=== PATIENT | female | born 1995 | race Caucasian/White ===

== ENCOUNTER 2016-07-17 12:23 | Emergency (ER) | payer MEDICAID, OTHER ==
[2016-07-17 12:25] VITALS: BP 117/76; PULSE 74; RESP 20; TEMP 98.3; O2SAT 100
[2016-07-17] MEDS ORDERED: PROG1CAP20 PO (13:13)
--- NOTE | 2016-07-17 13:13 | PD ---
HPI Chief Complaint: Related Problem Time Seen by Provider: 12:31 Travel History International Travel<30 days: No Contact w/Intl Traveler<30days: No Traveled to known affect area: No History of Present Illness HPI Patient is a 21-year-old at approximately 8 weeks 6 days based on LMP of who presents the emergency department today with concerns for possible miscarriage. Yesterday afternoon patient had cramping in the pelvis and a small amount of vaginal bleeding primarily when she wiped on the toilet paper. She was seen at the emergency department at [facility] last night. On 07/16/16 at 2249 she had a ultrasound showing single intrauterine gestation. Gestational sac measuring 5 weeks 2 days and crown- rump length of the fetus measuring 6 weeks 3 days. heart rate was 141 bpm. Beta Quant was 2198. Patient states that she was told that she may be having a miscarriage because her gestational sac measuring 1 week behind crown- rump length. In the interim however she has not had any persistent cramping or vaginal bleeding and her symptoms have resolved. Patient and her fianc presents the emergency department today requesting "to save my baby". PFSH Past Medical History Diminished Hearing: No Immunizations Current: Yes ?: LMP: 05/16/16 : 1 Para: 1 Social History Alcohol Use: No Tobacco Use: No Substance Use: No Allergies-Medications (Allergen,Severity, Reaction): Coded Allergies: No Known Allergies (Verified , 06/13/14) Reported Meds & Prescriptions Reported Meds & Active Scripts Active Prometrium (Progesterone Micronized) 100 Mg Cap 100 Mg PO DAILY Review of Systems Except as stated in HPI: all other systems reviewed are Neg Physical Exam Narrative GENERAL: Well-appearing female in no acute distress SKIN: Focused skin assessment warm/dry. HEAD: Normocephalic. EYES: No scleral icterus. No injection or drainage. ENT: Mucous membranes pink and moist. NECK: Supple CARDIOVASCULAR: Regular rate and rhythm. RESPIRATORY: No accessory muscle use. GASTROINTESTINAL: Abdomen soft, non-tender, nondistended. MUSCULOSKELETAL: Normal gait NEUROLOGICAL: Awake and alert. Normal speech. PSYCHIATRIC: Anxious Data Data Last Documented VS Vital Signs Date Time Temp Pulse Resp B/P Pulse Ox O2 Delivery O2 Flow Rate FiO2 07/17/16 12:33 18 6/10/17 12:25 98.3 74 117/76 100 Room Air [facility] Medical Decision Making Medical Screen Exam Complete: Yes Emergency Medical Condition: Yes Medical Record Reviewed: Yes Differential Diagnosis 21-year-old at 6 weeks 3 days based on ultrasound performed last night here with concerns for miscarriage. Ultrasound yesterday evening showed with active heart rate. She did have some cramping and bleeding but those symptoms have since resolved. History is consistent with threatened AB. Her gestational sac is 1 week behind measurement compared to her chronic rump length/ pole. However patient her fianc were counseled about the room for air given the fact that these measurements are so small. Even a 1 mm different measurement in the cursor could account for several days. Ultimately, patient and her fianc had a very poor experience at the outside hospital emergency department. After prolonged counseling here in the emergency department, her symptoms have resolved and her pain and bleeding have resolved. We discussed the use of potential progesterone, although this has limited proof of benefit in first trimester. Regardless she needs a follow-up for repeat ultrasound in approximately one week to repeat date and evaluate for interval growth within the . There is nothing different that needs to be performed today. Narrative Course Patient and her fianc were agreeable with the above plan and will be referred to PROFESSOR OF ARCHAEOLOGY for repeat ultrasound in approximately one week. Diagnosis Primary Impression: Vaginal bleeding during , antepartum Referrals: [facility] Additional Instructions: Progesterone supplementation as prescribed. Follow-up with PROFESSOR OF ARCHAEOLOGY in approximately one week for repeat ultrasound as discussed. Med/Other Pt SpecificInfo: Prescription(s) given Scripts Progesterone Micronized (Prometrium)100 Mg Myl549 Mg PO DAILY #7 CAP Ref 0 Prov:Trixie Hernandez MD 07/17/16 Disposition: 01 DISCHARGE HOME Condition: Stable Trixie Hernandez MD Jul 17, 2016 13:13
== END 2016-07-17 13:43 | disposition home or self-care (01) ==
LOC: NEPD 12:23
DX: O20.9 Hemorrhage in early pregnancy, unspecified (principal); Z3A.08 8 weeks gestation of pregnancy
CPT/HCPCS: 99283

== ENCOUNTER 2016-07-23 19:42 | Emergency (ER) | payer OTHER ==
[~2016-07-23] VITALS: Ht 167.6 cm; Wt 60.0 kg
[~2016-07-23 19:42] MED LIST: PROG1CAP20 PO
[2016-07-23 19:44] VITALS: BP 117/72; PULSE 64; RESP 16; TEMP 99; O2SAT 99
[2016-07-23] MEDS ORDERED: CEPH-460 PO (21:47)
[2016-07-23 21:52] VITALS: BP 108/63; PULSE 65; RESP 16; O2SAT 100
--- NOTE | 2016-07-23 21:54 | PD ---
HPI Chief Complaint: Medical Reimbursement Specialist Problem/Complaint Time Seen by Provider: 21:54 Travel History International Travel<30 days: No Contact w/Intl Traveler<30days: No Traveled to known affect area: No History of Present Illness HPI 21-year-old female presents to the ED for evaluation of 1 week history of cramping back pain and vaginal bleeding. States that the bleeding has been heavy with "clots." Patient was seen on 07/17. She had a transvaginal ultrasound on 07/16 at an outside hospital which revealed an intrauterine measuring approximately 5 weeks, 2 days and a beta Quant 2198. She was prescribed progesterone at the time and endorses compliance with these medications. She denies nausea, vomiting, abdominal pain. Endorses increased urinary urgency, denies dysuria. PFSH Past Medical History Diabetes: No Patient Takes Glucophage: No Diminished Hearing: No Immunizations Current: Yes Tetanus Vaccination: > 5 Years Influenza Vaccination: No ?: : 1 Para: 1 Social History Alcohol Use: No Tobacco Use: No Substance Use: No Allergies-Medications (Allergen,Severity, Reaction): Coded Allergies: No Known Allergies (Verified , 07/23/16) Reported Meds & Prescriptions Reported Meds & Active Scripts Active Ibuprofen 600 Mg Tab 600 Mg PO Q8H PRN Prometrium (Progesterone Micronized) 100 Mg Cap 100 Mg PO DAILY Reported Keflex (Cephalexin) 500 Mg Cap 500 Mg PO Q12H Review of Systems Except as stated in HPI: all other systems reviewed are Neg Physical Exam Narrative GENERAL: Well-nourished, well-developed thin female in no acute distress. SKIN: Focused skin assessment warm/dry. HEAD: Normocephalic. EYES: No scleral icterus. No injection or drainage. NECK: Supple, trachea midline. No JVD or lymphadenopathy. CARDIOVASCULAR: Regular rate and rhythm without murmurs, gallops, or rubs. RESPIRATORY: Breath sounds clear and equal bilaterally. No accessory muscle use. GASTROINTESTINAL: Abdomen soft, non-tender, nondistended. No suprapubic tenderness. Active bowel sounds. MUSCULOSKELETAL: No cyanosis, or edema. BACK: Nontender without obvious deformity. No CVA tenderness. Data Data Last Documented VS Vital Signs Date Time Temp Pulse Resp B/P Pulse Ox O2 Delivery O2 Flow Rate FiO2 07/23/16 21:52 65 16 108/63 100 Room Air 07/23/16 19:44 99.0 Orders Beta Hcg (Quant/Titer) (07/23/16 22:05) Us Pelvis (Ques Pr/Ect)W Trans (07/23/16 ) Iv Access Insert/Monitor (07/23/16 22:05) Complete Rh (07/23/16 22:20) Labs Laboratory Tests Test 07/23/16 22:15 Human Chorionic Gonadotropin, 52 MIU/ML Quant Blood Type O POSITIVE Rho(D) Type POSITIVE MDM Medical Decision Making Medical Screen Exam Complete: Yes Emergency Medical Condition: Yes Differential Diagnosis AB versus complete AB versus complete AB versus demise versus other Narrative Course 21-year-old female presents to the ED for evaluation of 1 week history of cramping back pain and vaginal bleeding. States that the bleeding has been heavy with "clots." Patient was seen on 07/17. She had a transvaginal ultrasound on 07/16 at an outside hospital which revealed an intrauterine measuring approximately 5 weeks, 2 days and a beta Quant 2198. She was prescribed progesterone at the time and endorses compliance with these medications. She denies nausea, vomiting, abdominal pain. Endorses increased urinary urgency, denies dysuria. Vitals reviewed. Physical exam is unremarkable. Beta Quant 50 on recheck. Blood type O+. Transvaginal US reveals no IUP. I discussed the results of the workup with the patient. I explained the variable process of miscarriage and instructed the patient to take a multivitamin with iron, follow up with the PCP or [facility]. I provided the patient with a short course of pain medications, cautioned her not to drive while taking narcotics. The patient indicated understanding of the instructions and is agreeable to the care plan. She is stable and discharged home. Diagnosis Primary Impression: Spontaneous in first trimester Referrals: Plumber Assistant Primary Care Physician Patient Instructions: General Instructions, Spontaneous Miscarriage (ED) Additional Instructions: Rest, hydrate. Take an OTC multivitamin with iron to combat anemia due to blood loss. Take pain medications as prescribed. Follow-up with the primary care or [facility]. Return to the ED for any urgent or emergent medical condition. Med/Other Pt SpecificInfo: Prescription(s) given Scripts Ibuprofen 600 Mg Rcm222 Mg PO Q8H PRN (PAIN) #15 TAB Ref 0 Prov:Tunde Childress MD 07/23/16 Disposition: 01 DISCHARGE HOME Condition: Stable Echo Momin Jul 23, 2016 21:54
[2016-07-23 23:08] LABS: BETA HCG QUANT 52 MIU/ML (0-5)
[2016-07-23] MEDS ORDERED: IBUP-232 PO (23:19)
--- NOTE | 2016-07-24 00:05 | RADRPT ---
EXAM DATE/TIME: 07/23/2016 23:05 [place] COMPARISON: No previous studies available for comparison. INDICATIONS : Pelvic bleeding. LAB(S): Beta-hC MEDICAL HISTORY : . SURGICAL HISTORY : None. ENCOUNTER: Initial ACUITY: 1 week PAIN SCORE: 7/10 LOCATION: Bilateral pelvis MEASUREMENTS: UTERUS: 7.8 x 4.8 x 3.1 cm ENDOMETRIAL STRIPE: 6 mm RIGHT OVARY: 1.9 x 2.2 x 2.3 cm LEFT OVARY: 1.9 x 2.3 x 2.0 cm FREE FLUID: No FINDINGS: No intrauterine is identified. There is a 5 mm x 2 mm area in the endometrial canal probabl y representing a small hemorrhage. Small cystic area in the uterus anteriorly. 1.3 cm right ovarian c yst may represent a corpus luteum cyst. CONCLUSION: 1. No intrauterine identified probably due to miscarriage. Trace fluid or hemorrhage in the endometrial canal. A corpus luteum cyst right ovary. Glenroy Rivers MD on July 23, 2016 at 23:57 Board Certified Radiologist. This report was verified electronically.
== END 2016-07-24 00:55 | disposition home or self-care (01) ==
LOC: NEPD 19:42
DX: O03.9 Complete or unspecified spontaneous abortion without complication (principal)
CPT/HCPCS: 76700; 76817; 84702; 86901; 99284

== ENCOUNTER 2016-10-08 09:32 | Emergency (ER) | payer MEDICAID ==
[~2016-10-08] VITALS: Ht 162.6 cm; Wt 55.0 kg
[~2016-10-08 09:32] MED LIST changes: +CEPH-460 PO; +IBUP-232 PO
[2016-10-08 09:35] VITALS: BP 100/57; PULSE 67; RESP 18; TEMP 97.5; O2SAT 100
--- NOTE | 2016-10-08 11:09 | PD ---
HPI Chief Complaint: Related Problem Time Seen by Provider: 10:47 Travel History International Travel<30 days: No Contact w/Intl Traveler<30days: No Traveled to known affect area: No History of Present Illness HPI This is a 21-year-old female who is 11 weeks by dates who presents to the emergency department having had vigorous intercourse last evening after not having intercourse for a long time, and subsequently having some spotting and lower abdominal cramping, moderate severity, with no associated fevers or chills. She has had some dysuria. She had a miscarriage prior to this and has a 5-year-old. [facility] Past Medical History Diabetes: No Diminished Hearing: No Immunizations Current: Yes ?: LMP: 07/16/16 : 1 Para: 1 Social History Alcohol Use: No Tobacco Use: No Substance Use: No Allergies-Medications (Allergen,Severity, Reaction): Coded Allergies: No Known Allergies (Verified , 10/08/16) Reported Meds & Prescriptions Reported Meds & Active Scripts Active No Active Prescriptions or Reported Medications Review of Systems Except as stated in HPI: all other systems reviewed are Neg Physical Exam Narrative GENERAL:Well appearing, no acute distress SKIN: Focused skin assessment warm and dry. HEAD: Atraumatic. Normocephalic. EYES: Pupils equal and round. No injection or drainage. ENT: Moist mucous membranes NECK: Trachea midline. CARDIOVASCULAR: Regular rate and rhythm. No murmur appreciated. RESPIRATORY: Clear to auscultation. Breath sounds equal bilaterally. GASTROINTESTINAL: Abdomen soft, mildly tender to palpation in the lower abdomen with no rebound or guarding. COURIER: no discharge in the vault, normal appearing cervix with no bleeding MUSCULOSKELETAL: No obvious deformities. NEUROLOGICAL: Awake and alert. No obvious cranial nerve deficits. Moving all extremities. PSYCHIATRIC: Appropriate mood and affect; insight and judgment normal. Data Data Last Documented VS Vital Signs Date Time Temp Pulse Resp B/P (MAP) Pulse Ox O2 Delivery O2 Flow Rate FiO2 10/08/16 10:55 16 10/08/16 09:35 97.5 67 100/57 (71) 100 Orders Orders Ed Poc Ultrasound (10/08/16 ) Urinalysis - C+S If Indicated (10/08/16 11:11) Labs Laboratory Tests Test 10/08/16 11:20 Urine Color YELLOW Urine Turbidity HAZY Urine pH 7.5 Urine Specific [place] 1.015 Urine Protein NEG mg/dL Urine Glucose (UA) NEG mg/dL Urine Ketones NEG mg/dL Urine Occult Blood NEG Urine Nitrite NEG Urine Bilirubin NEG Urine Urobilinogen LESS THAN 2.0 MG/DL Urine Leukocyte Esterase NEG Urine RBC 2 /hpf Urine WBC 3 /hpf Urine Squamous Epithelial Cells 1 /hpf Urine Amorphous Sediment RARE Urine Bacteria RARE /hpf Urine Mucus FEW /lpf Microscopic Urinalysis Comment CULT NOT INDICATED MDM Medical Decision Making Medical Screen Exam Complete: Yes Emergency Medical Condition: Yes Interpretation(s) Afebrile, no tachycardia, normotensive Urinalysis: Rare bacteria Differential Diagnosis Threatened miscarriage, incomplete miscarriage, complete miscarriage, vaginal laceration Narrative Course This is a 21-year-old female who presents to the emergency department with spotting in the setting of her first trimester. She had rigorous vaginal intercourse yesterday. She is having some cramping. She is well-appearing on exam. She has a benign COURIER exam. Urinalysis demonstrates some rare bacteria but is otherwise reassuring. She'll be placed on an antibiotic and will follow up with her card tape converter operator. Diagnosis Primary Impression: First trimester bleeding Additional Impression: Asymptomatic bacteriuria during Patient Instructions: General Instructions Additional Instructions: You have been diagnosed with a threatened miscarriage. Many women who have vaginal bleeding in early go on to have normal pregnancies. However some women that have vaginal bleeding will have a miscarriage and it is important to followup with your card tape converter operator. If you develop severe abdominal pain, fever, persistent vomiting or inability to eat, heavy vaginal bleeding using more than one pad an hour, lightheadedness , dizziness, chest pain or shortness of breath return to the emergency department immediately. Followup with your card tape converter operator as soon as possible. Take Tylenol as needed for pain. Med/Other Pt SpecificInfo: Prescription(s) given Scripts Cephalexin (Keflex) 500 Mg Cap 500 MG PO Q12H for Infection for 7 Days, CAP 0 Refills Prov: Tg Beckford MD 10/08/16 Disposition: 01 DISCHARGE HOME Condition: Stable Tg Beckford MD Oct 08, 2016 11:09
[2016-10-08 12:00] LABS: BACTERIA, URINE RARE /hpf; BLOOD, URINE NEG (NEG); COMMENT (UR) CULT NOT INDICATED; CULTURE IF INDICATED CULT NOT INDICATED; GLUCOSE,URINE NEG (NEG); KETONE, URINE NEG (NEG); MUCUS URINE FEW /lpf (OCC); NITRITE,URINE NEG (NEG); PH, URINE 7.5 (5.0-8.5); SQUAMOUS EPITHELIAL CELL URINE 1 /hpf (0-5); URINE COLOR YELLOW (YELLW/STRAW)
[2016-10-08] MEDS ORDERED: CEPH-460 PO (12:07)
[2016-10-08 15:51] LABS: CHLAMYDIA PCR NOT DETECTED (NOT DETECT); NEISSERIA PCR NOT DETECTED (NOT DETECT)
== END 2016-10-08 12:43 | disposition home or self-care (01) ==
LOC: NEPD 09:32
DX: O46.91 Antepartum hemorrhage, unspecified, first trimester (principal); O26.891 Other specified pregnancy related conditions, first trimester; R82.71 Bacteriuria; R10.30 Lower abdominal pain, unspecified; Z3A.11 11 weeks gestation of pregnancy
CPT/HCPCS: 81001; 87210; 87491; 87591; 99283

== ENCOUNTER 2016-11-12 16:02 | Emergency (ER) | payer MEDICAID ==
[~2016-11-12] VITALS: Ht 162.6 cm; Wt 55.0 kg
[~2016-11-12 16:02] MED LIST changes: -IBUP-232 PO; -PROG1CAP20 PO
[2016-11-12 16:07] VITALS: BP 124/82; PULSE 72; RESP 15; TEMP 98.4; O2SAT 98
[2016-11-12 16:22] VITALS: BP 114/69; PULSE 81; RESP 18; O2SAT 100
--- NOTE | 2016-11-12 16:25 | PD ---
HPI Chief Complaint: Neuro Symptoms/ Deficits Time Seen by Provider: 16:18 Travel History International Travel<30 days: No Contact w/Intl Traveler<30days: No Traveled to known affect area: No History of Present Illness HPI 21-year-old female came to the emergency room with history of sudden onset of blurred vision followed by some slurred speech at 2 PM. 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 This speech lasted for 15 minutes but the blurred vision is still there. Soon after she started having mid forehead headache patient says the headache is 5 out of 10 and is in the center of her forehead. She's never had these symptoms before. No history of loss of consciousness. Vital signs are stable. For past 4 weeks she's been having vaginal bleeding every day and she is being seen by an OB for that. The bleeding has been steady and stable so far. No history of cramping. PFSH Past Medical History Narrative Medical List of her past medical, surgical, social and family history is reviewed from the nursing note. Diabetes: No Diminished Hearing: No Immunizations Current: Yes ?: LMP: 07/16/16 : 1 Para: 1 Social History Alcohol Use: No Tobacco Use: No Substance Use: No Allergies-Medications (Allergen,Severity, Reaction): Coded Allergies: No Known Allergies (Verified , 10/08/16) Comments No known drug allergies. Reported Meds & Prescriptions Reported Meds & Active Scripts Active No Active Prescriptions or Reported Medications Narrative Medication List of her home medications reviewed from the nursing note. Review of Systems Except as stated in HPI: all other systems reviewed are Neg Physical Exam Narrative GENERAL: Awake, alert, no obvious distress SKIN: Focused skin assessment warm/dry. HEAD: Atraumatic. Normocephalic. EYES: Pupils equal and round. No scleral icterus. No injection or drainage. ENT: No nasal bleeding or discharge. Mucous membranes pink and moist. NECK: Trachea midline. No JVD. CARDIOVASCULAR: Regular rate and rhythm. No murmur appreciated. RESPIRATORY: No accessory muscle use. Clear to auscultation. Breath sounds equal bilaterally. GASTROINTESTINAL: Abdomen soft, non-tender, nondistended. Hepatic and splenic margins not palpable. MUSCULOSKELETAL: No obvious deformities. No clubbing. No cyanosis. No edema. NEUROLOGICAL: Awake and alert. No obvious cranial nerve deficits. Motor grossly within normal limits. Normal speech. NIH stroke score of 0 PSYCHIATRIC: Appropriate mood and affect; insight and judgment normal. Data Data Last Documented VS Vital Signs Date Time Temp Pulse Resp B/P (MAP) Pulse Ox O2 Delivery O2 Flow Rate FiO2 11/12/16 18:50 11/12/16 16:22 81 18 100 Room Air 11/12/16 16:07 98.4 Orders Orders Complete Blood Count With Diff (11/12/16 16:35) Basic Metabolic Panel (Bmp) (11/12/16 16:35) Electrocardiogram (11/12/16 ) Layout Worker / Telemetry [id number] (11/12/16 16:35) Sodium Chlor 0.9% 1000 Ml Inj (Ns 1000 M (11/12/16 16:45) Acetaminophen (Tylenol) (11/12/16 16:45) Potassium Chloride (Kcl) (11/12/16 18:15) Labs Laboratory Tests Test 11/12/16 17:15 White Blood Count 11.1 TH/MM3 Red Blood Count 3.65 MIL/MM3 Hemoglobin 11.9 GM/DL Hematocrit 34.4 % Mean Corpuscular Volume 94.3 FL Mean Corpuscular Hemoglobin 32.5 PG Mean Corpuscular Hemoglobin Concent 34.5 % Red Cell Distribution Width 13.3 % Platelet Count 157 TH/MM3 Mean Platelet Volume 11.1 FL Neutrophils (%) (Auto) 77.0 % Lymphocytes (%) (Auto) 15.7 % Monocytes (%) (Auto) 5.0 % Eosinophils (%) (Auto) 1.4 % Basophils (%) (Auto) 0.9 % Neutrophils # (Auto) 8.6 TH/MM3 Lymphocytes # (Auto) 1.8 TH/MM3 Monocytes # (Auto) 0.6 TH/MM3 Eosinophils # (Auto) 0.2 TH/MM3 Basophils # (Auto) 0.1 TH/MM3 CBC Comment DIFF FINAL Differential Comment Blood Urea Nitrogen 8 MG/DL Creatinine 0.70 MG/DL Random Glucose 80 MG/DL Calcium Level 8.6 MG/DL Sodium Level 139 MEQ/L Potassium Level 3.3 MEQ/L Chloride Level 106 MEQ/L Carbon Dioxide Level 25.2 MEQ/L Anion Gap 8 MEQ/L Estimat Glomerular Filtration Rate 106 ML/MIN MDM Medical Decision Making Medical Screen Exam Complete: Yes Emergency Medical Condition: Yes Medical Record Reviewed: Yes Interpretation(s) Twelve-lead EKG was reviewed by me. Normal sinus rhythm, normal axis, bradycardia, nonspecific ST-T wave changes. Heart rate of 59 bpm. Differential Diagnosis Migraine headache, headache Narrative Course 5:47 PM awaiting for the blood test results. I have chosen not to get a CAT scan of her head since my suspicion for intracranial bleed or stroke is extremely low and I do not want to necessarily radiate the fetus. I am comfortable with the diagnosis of migraine headache which it most probably is. She is getting IV fluid bolus and I ordered acetaminophen for the headache. 6:23 PM patient says her headache is down to 1. I've educated her regarding migraine. She will be discharged home. Procedures EKG Prior to Arrival: No Diagnosis Primary Impression: Migraine Qualified Codes: G43.909 - Migraine, unspecified, not intractable, without status migrainosus Referrals: Primary Care Physician Additional Instructions: Please return to the ER the condition worsens or any other new concerns. Drink lots of fluid to keep himself hydrated. Get rest and good sleep. Stay away from watching television, Smart phone or computer screen. Stay away from cheese and chocolate that can provoke migraine headache. Follow-up with your OB. Med/Other Pt SpecificInfo: No Change to Meds Scripts No Active Prescriptions or Reported Meds Disposition: 01 DISCHARGE HOME Condition: Stable Courtney Vasquez MD Nov 12, 2016 16:25
[2016-11-12] MEDS ORDERED: SODIUM CHLOR 0.9% 1000 ML INJ 1,000 ML IV ONE (16:45)
[2016-11-12] MEDS ORDERED: ACETAMINOPHEN 325 MG TAB PO ONE (16:45)
[2016-11-12 17:42] LABS: AUTOMATED NEUTROPHIL # 8.6 TH/MM3 (1.8-7.7); BASOPHIL # 0.1 TH/MM3 (0-0.2); BASOPHIL % 0.9 % (0.0-2.0); EOSINOPHIL # 0.2 TH/MM3 (0-0.4); EOSINOPHIL % 1.4 % (0.0-4.0); HEMATOCRIT 34.4 % (35.0-46.0); HEMO FLAGS DIFF FINAL; LYMPH % 15.7 % (9.0-44.0); LYMPHOCYTE # 1.8 TH/MM3 (1.0-4.8); MEAN CELL VOLUME 94.3 FL (80.0-100.0); MEAN CORPUSCULAR HEMOGLOBIN 32.5 PG (27.0-34.0); MEAN CORPUSCULAR HGB CONC 34.5 % (32.0-36.0); PLATELET COUNT 157 TH/MM3 (150-450); RED BLOOD COUNT 3.65 MIL/MM3 (4.00-5.30); RED CELL DISTRIBUTION WIDTH 13.3 % (11.6-17.2); WHITE BLOOD COUNT 11.1 TH/MM3 (4.0-11.0)
[2016-11-12 17:54] LABS: BICARBONATE 25.2 MEQ/L (21.0-32.0); POTASSIUM 3.3 MEQ/L (3.5-5.1)
[2016-11-12] MEDS ORDERED: POTASSIUM CHLORIDE 20 MEQ CONTROLLED RELEASE TAB PO ONE (18:15)
--- NOTE | 2016-11-13 05:08 | EKG ---
Date Performed: 11/12/2016 Time Performed: 17:27:42 PTAGE: 21 years EKG: SINUS BRADYCARDIA WITH SINUS ARRHYTHMIA WITH SHORT [place] INTERVAL POSSIBLE RIGHT VENTRICULAR C ONDUCTION DELAY BORDERLINE ECG NO PREVIOUS TRACING DOCTOR: Jarred Pickett Interpretating Date/Time 11/13/2016 05:04:31
== END 2016-11-12 19:02 | disposition home or self-care (01) ==
LOC: NEPE 16:02
DX: O26.892 Other specified pregnancy related conditions, second trimester (principal); G43.909 Migraine, unspecified, not intractable, without status migrainosus; R00.1 Bradycardia, unspecified; I49.8 Other specified cardiac arrhythmias; Z3A.16 16 weeks gestation of pregnancy
CPT/HCPCS: 80048; 85025; 93005; 96360; 99284; J7030

== ENCOUNTER 2017-06-14 00:02 | Emergency (ER) | payer MEDICAID | END 2017-06-14 01:13 | disposition left against medical advice (07) | LOC: NEPD 01:13 | DX: S01.511A Laceration without foreign body of lip, initial encounter (principal); W45.8XXA Other foreign body or object entering through skin, initial encounter | CPT/HCPCS: 99281 ==